=== PATIENT | male | born 1960 | race Caucasian/White ===

== ENCOUNTER 2019-08-23 12:50 | Emergency (ER) | payer MEDICAID ==
[~2019-08-23] VITALS: Ht 170.2 cm; Wt 69.4 kg
--- NOTE | 2019-08-23 13:00 | NUR ---
Patient ambulated with stable gait. Speech is clear, speaks in complete sentences. No acute neuro deficits noted. A/Ox4. Speech is clear, speaks in complete sentences. Patient came for c/o lower extremity pain for 2-3 days no trauma noted. Respiratory even and unlabored, no cough no sob. No acute cardiovascular distress noted.
--- NOTE | 2019-08-23 13:07 | NUR ---
ERMD at bedside MSE.
[2019-08-23] MEDS ORDERED: HYDROCODONE/APAP 5-325MG TABLET PO ONE (13:15)
[2019-08-23] MEDS ORDERED: IBUPROFEN 600 MG TABLET PO ONE (13:15)
[2019-08-23] MEDS ORDERED: HYDROCODONE/APAP 5-325MG TABLET ONE (13:19)
[2019-08-23] MEDS ORDERED: IBUPROFEN 600 MG TABLET ONE (13:19)
--- NOTE | 2019-08-23 13:30 | NUR ---
US tech, Alexandru at bedside performing scan
[2019-08-23 13:39] LABS: BASOPHILS # (AUTO) 0.1 K/uL (0.0-8.0); BASOPHILS % (AUTO) 1.3 % (0.0-2.0); EOSINOPHILS # (AUTO) 0.1 K/uL (0.0-0.7); EOSINOPHILS % (AUTO) 2.1 % (0.0-7.0); HEMATOCRIT 43.6 % (36.7-47.1); HEMOGLOBIN 14.5 g/dL (12.5-16.3); MEAN CORPUSCULAR HEMOGLOBIN 28.7 uug (23.8-33.4); MEAN CORPUSCULAR HGB CONC 33 g/dL (32.5-36.3); MEAN CORPUSCULAR VOLUME 86.4 fL (73.0-96.2); MONOCYTES # (AUTO) 0.6 K/uL (2.0-10.0); MONOCYTES % (AUTO) 8.5 % (0.0-11.0); NEUTROPHILS # (AUTO) 4.1 K/uL (1.8-8.9); NEUTROPHILS % (AUTO) 59.1 % (38.5-71.5); PLATELET COUNT (AUTO) 319 K/uL (152-348); RED BLOOD CELL COUNT(AUTO) 5.04 MIL/uL (4.06-5.63)
[2019-08-23 13:40] LABS: CREATININE 1.1 mg/dL (0.6-1.3); POTASSIUM 3.8 mmol/L (3.5-5.1)
[2019-08-23 13:51] LABS: BILIRUBIN,DIRECT 0.1 mg/dL (0.0-0.2); BILIRUBIN,TOTAL 0.4 mg/dL (0.2-1.0)
[2019-08-23 13:52] LABS: MAGNESIUM 1.7 mg/dL (1.8-2.4); TOTAL PROTEIN, SERUM 7.3 g/dL (6.4-8.2)
--- NOTE | 2019-08-23 14:22 | NUR ---
Patient discharged to home in stable conditon. Written and verbal after care instructions given. Patient verbalizes understanding of instructions.pt walks in steady gait.
[2019-08-23 14:23] VITALS: BP 131/79
== END 2019-08-23 14:23 | disposition home or self-care (01) ==
LOC: ER 12:50
DX: M79.604 Pain in right leg (principal); E83.42 Hypomagnesemia; R73.9 Hyperglycemia, unspecified; F17.200 Nicotine dependence, unspecified, uncomplicated
CPT/HCPCS: 36415; 83735; 85025; A4663